=== PATIENT | male | born 1960 | race Caucasian/White ===

== ENCOUNTER 2016-10-14 01:17 | Emergency (ER) | payer MEDICAID ==
[~2016-10-14] VITALS: Ht 172.7 cm; Wt 68.0 kg
[2016-10-14 01:05] VITALS: BP 187/111
[~2016-10-14 01:17] MED LIST: LISINOPRIL10 MG ORAL
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
[2016-10-14 01:43] VITALS: BP 150/98
== END 2016-10-14 02:00 | disposition home or self-care (01) ==
LOC: EDBD 01:17 → EMR 02:00
DX: M79.1 Myalgia (principal); I10 Essential (primary) hypertension; E11.9 Type 2 diabetes mellitus without complications; F17.200 Nicotine dependence, unspecified, uncomplicated
CPT/HCPCS: 82962; 99283

== ENCOUNTER 2016-10-18 16:20 | Emergency (ER) | payer MEDICAID ==
[~2016-10-18] VITALS: Ht 172.7 cm; Wt 81.6 kg
[2016-10-18] MEDS ORDERED: Dexamethasone 4mg/ml vial IM ONE (17:00)
[2016-10-18] MEDS ORDERED: Hurricaine 20% Spray ORO ONE (17:00)
[2016-10-18] MEDS ORDERED: Methocarbamol 750mg tab ORAL ONE (17:15)
[2016-10-18 17:32] LABS: APPEARANCE,URINE CLEAR; KETONES,URINE NEGATIVE (NEGATIVE); LEUKOCYTE ESTERASE ,URINE NEGATIVE (NEGATIVE); NITRITE,URINE NEGATIVE (NEGATIVE); PH,URINE 7 (4.5-8.0); PROTEIN,URINE 2+ (NEGATIVE); UROBILINOGEN,URINE NORMAL MG/DL (0.0-1.0)
[2016-10-18 17:39] LABS: RBC,URINE 0-2 /HPF (0 - 0)
[2016-10-18 17:40] LABS: BACTERIA,URINE FEW /HPF
[2016-10-18] MEDS ORDERED: PERMETHRIN60 GM TOPIC (18:07)
[2016-10-18] MEDS ORDERED: KEFLEX250 M1 PO (18:07)
[2016-10-18 18:30] VITALS: BP 158/98
--- NOTE | 2016-10-18 18:37 | Emergency Room Report ---
History of Present Illness General Chief Complaint: Back Pain-No Injury Source: Patient Present Illness [facility] The patient is a 56-year-old male presenting with lower back pain and possible scabies exposure. The pain is described as a 6/10 dull ache to the mid lower back. Pain worse with bending over. Pain does not radiate.The patient states that the pain began after bending over 3 days prior. The patient also states that he has been scratching after possibly being exposed to scabies. The patient has not seen any lesions on the skin. The patient denies any other symptoms including nausea, vomiting, fever, chills , abdominal pain, dysuria, hematuria, penile discharge Allergies: Coded Allergies: No Known Allergies (Unverified , 10/14/16) Patient History Past Medical History: see triage record Pertinent Family History: none Reviewed Nursing Documentation: PMH: Agreed, PSxH: Agreed Nursing Documentation-PMH Past Medical History: No History, Except For Hx Hypertension: Yes Hx Diabetes: Yes Review of Systems All Other Systems: negative except mentioned in HPI Physical Exam Vital Signs Date Time Temp Pulse Resp B/P Pulse Ox O2 Delivery O2 Flow Rate FiO2 10/18/16 17:04 97.9 105 16 174/112 99 Room Air Sp02 EP Interpretation: reviewed, normal General Appearance: no apparent distress, alert, GCS 15, non-toxic Head: normocephalic, atraumatic Eyes: bilateral eye PERRL, bilateral eye normal inspection ENT: hearing grossly normal, normal pharynx, no angioedema, normal voice Neck: full range of motion, supple/symm/no masses Respiratory: chest non-tender, lungs clear, normal breath sounds, speaking full sentences Cardiovascular #1: regular rate, rhythm, no edema Gastrointestinal: normal bowel sounds, non tender, soft, non-distended, no guarding, no rebound Genitourinary: normal inspection, no CVA tenderness, penis normal, scrotum normal Musculoskeletal: back normal, gait/station normal, normal range of motion, tender - Tenderness to palpation over bilateral lumbar paraspinous muscles Neurologic: alert, oriented x3, responsive, motor strength/tone normal, sensory intact, normal gait, speech normal Psychiatric: judgement/insight normal, memory normal, mood/affect normal, no suicidal/homicidal ideation Reflexes: 3+ bicep (R), 3+ bicep (L), 3+ tricep (R), 3+ tricep (L), 3+ knee (R) , 3+ knee (L) Skin: normal color, no rash, warm/dry, well hydrated Lymphatic: no adenopathy Medical Decision Making PA Attestation Dr. Sneed is my supervising physician. Patient management was discussed with my supervising physician Diagnostic Impression: Primary Impression: Scabies exposure Additional Impression: Urinary tract infection ER Course The patient is a 56-year-old male presenting for lower back pain and possible scabies exposure Ddx considered include but not limited to sprain/strain, fracture, contusion, muscle spasm Ddx considered include but not limited to insect bite, contact dermatitis, eczema, cellulitis, scabies Physical exam: Afebrile. No apparent distress There is tenderness to palpation over bilateral lumbar paraspinous muscles. No midline tenderness. No step-offs. No obvious deformity. Normal gait. No CVA tenderness. Abdomen is soft and nontender. Skin: warm and dry. No burrowing seen. No lesions of web spaces. No erythema Labs: Urinalysis shows 2+ occult blood and 5-10 white blood cells with few bacteria The patient is given Motrin and Robaxin for pain. Patient will also receive prescription for permethrin and keflex for UTI. ER precautions are given Laboratory Tests Test 10/18/16 17:20 Urine Color Yellow Urine Appearance Clear Urine pH 7 (4.5-8.0) Urine Specific [place] 1.010 (1.005-1.035) Urine Protein 2+ (NEGATIVE) H Urine Glucose (UA) Negative (NEGATIVE) Urine Ketones Negative (NEGATIVE) Urine Occult Blood 2+ (NEGATIVE) H Urine Nitrite Negative (NEGATIVE) Urine Bilirubin Negative (NEGATIVE) Urine Urobilinogen Normal MG/DL (0.0-1.0) Urine Leukocyte Esterase Negative (NEGATIVE) Urine RBC 0-2 /HPF (0 - 0) H Urine WBC 5-10 /HPF (0 - 0) H Urine Squamous Epithelial Cells None /LPF (NONE/OCC) Urine Bacteria Few /HPF (NONE) Urine Sperm Many /LPF (NONE) Lab Results Impression Urinalysis shows 2+ occult blood and 5-10 white blood cells with few bacteria Last Vital Signs Date Time Temp Pulse Resp B/P Pulse Ox O2 Delivery O2 Flow Rate FiO2 10/18/16 18:30 98 17 158/98 100 Room Air 10/18/16 18:30 98.2 Status: improved Disposition: HOME, SELF-CARE Condition: Improved Scripts Permethrin* (ELIMITE*) 60 Gm Cream..g. 1 APPLIC TOPIC ONCE, #60 GM 0 Refills Apply cream from head to toe; leave on for 8-14 hours before washing off with water; may reapply in 1 week if live mites appear. Prov: BARBRA SEQUEIRA 10/18/16 Cephalexin (Keflex) 250 Mg Capsule 250 MG PO Q6HR, #28 CAP Prov: BARBRA SEQUEIRA.Gama 10/18/16 Patient Instructions: Urinary Tract Infection, Pruritus Additional Instructions: I discussed my findings with the patient. All questions and concerns have been answered. Treatment and medication compliance have been addressed. I advised the patient that they need to follow up with PMD in 3-5 days. Return to ED if symptoms worsen, new symptoms arise, or if needed for any reason. Patient verbalized understanding of discharge instructions. BARBRA SEQUEIRA Oct 18, 2016 18:37
== END 2016-10-18 18:32 | disposition home or self-care (01) ==
LOC: EMR 17:20
DX: N39.0 Urinary tract infection, site not specified (principal); E11.9 Type 2 diabetes mellitus without complications; I10 Essential (primary) hypertension
CPT/HCPCS: 81003; 99284

== ENCOUNTER 2017-01-10 04:07 | Emergency (ER) | payer MEDICAID ==
[~2017-01-10] VITALS: Ht 172.7 cm; Wt 72.6 kg
[~2017-01-10 04:07] MED LIST changes: +KEFLEX250 M1 PO; +PERMETHRIN60 GM TOPIC
[2017-01-10 04:40] VITALS: BP 147/90
[2017-01-10] MEDS ORDERED: IBUPROFEN600 MG ORAL (04:52)
--- NOTE | 2017-01-10 04:52 | Emergency Room Report ---
History of Present Illness General Chief Complaint: General Complaint Source: Patient Present Illness HPI This is a 57-year-old male with chief complaint of back pain. His been ongoing problem. He denies any fever chills but felt weak. Said he can't walk yet he walked himself here to the bus here. Denies any fever chills denies any nausea vomiting. No Other complaint. Allergies: Coded Allergies: No Known Allergies (Unverified , 10/14/16) Patient History Past Medical History: see triage record, old chart reviewed Past Surgical History: other Pertinent Family History: none Social History: Reports: smoking Immunizations: other Reviewed Nursing Documentation: PMH: Agreed, PSxH: Agreed Nursing Documentation-PMH Hx Hypertension: Yes Hx Diabetes: Yes Review of Systems Eye: Denies: blurred vision, eye pain ENT: Denies: ear pain, nose congestion, throat swelling Respiratory: Denies: cough, shortness of breath Cardiovascular: Denies: chest pain, palpitations Gastrointestinal: Denies: abdominal pain, diarrhea, nausea, vomiting Musculoskeletal: Denies: back pain, joint pain Skin: Denies: rash Neurological: Denies: headache, numbness Endocrine: Denies: increased thirst, increased urine Hematologic/Lymphatic: Denies: easy bruising All Other Systems: negative except mentioned in HPI Physical Exam Vital Signs Date Time Temp Pulse Resp B/P Pulse Ox O2 Delivery O2 Flow Rate FiO2 01/10/17 04:26 97.9 105 18 152/93 95 Room Air vitals with hypertension Sp02 EP Interpretation: reviewed, normal General Appearance: well appearing, no apparent distress, alert Head: normocephalic, atraumatic Eyes: bilateral eye EOMI, bilateral eye PERRL ENT: hearing grossly normal, normal pharynx Neck: full range of motion, supple, no meningismus Respiratory: chest non-tender, lungs clear, normal breath sounds Cardiovascular #1: regular rate, rhythm, no murmur Gastrointestinal: normal bowel sounds, non tender, no mass, no organomegaly, no bruit, non-distended Musculoskeletal: back normal, gait/station normal, normal range of motion Psychiatric: mood/affect normal Skin: warm/dry Medical Decision Making Diagnostic Impression: Primary Impression: Back pain Qualified Codes: M54.5 - Low back pain; G89.29 - Other chronic pain ER Course Patient with acute exacerbation of chronic back pain. Is walking around without any difficulty. When asked to sit up on the lying down position he shot up without a problem. No evidence of any trauma. I see no evidence of cauda equina syndrome, spinal epidural abscess or neoplastic process. We'll discharge home. Last Vital Signs Date Time Temp Pulse Resp B/P Pulse Ox O2 Delivery O2 Flow Rate FiO2 01/10/17 04:26 97.9 105 18 152/93 95 Room Air Status: improved Disposition: HOME, SELF-CARE Condition: Stable Scripts Ibuprofen* (MOTRIN*) 600 Mg Tablet 600 MG ORAL THREE TIMES A DAY, #30 TAB 0 Refills Prov: MARIMAR BESS M.D. 01/10/17 Additional Instructions: Followup with your Dr. in 7 days. Return if symptom worsen. MARIMAR BESS M.D. January 10, 2017 04:52
[2017-01-10 05:57] VITALS: BP 152/93
== END 2017-01-10 05:58 | disposition home or self-care (01) ==
LOC: EMR 05:02
DX: M54.9 Dorsalgia, unspecified (principal); G89.29 Other chronic pain; I10 Essential (primary) hypertension; E11.9 Type 2 diabetes mellitus without complications; F17.200 Nicotine dependence, unspecified, uncomplicated
CPT/HCPCS: 80300; 99283

== ENCOUNTER 2017-02-26 01:54 | Emergency (ER) | payer MEDICAID ==
[~2017-02-26] VITALS: Ht 172.7 cm; Wt 72.6 kg
[~2017-02-26 01:54] MED LIST changes: +IBUPROFEN600 MG ORAL
[2017-02-26 02:38] LABS: TROPONIN I < 0.30 ng/mL (<=0.30)
[2017-02-26 03:00] VITALS: BP 155/85
--- NOTE | 2017-02-26 03:12 | Emergency Room Report ---
History of Present Illness General Chief Complaint: Chest Pain Source: Patient, EMS Present Illness HPI Is a 57-year-old male who has a history of chronic pain. Also history of methamphetamine abuse. He presents with chief complaint of not feeling well and chest pain. Onset for over a day. Worse when he was walking tonight. No nausea no vomiting. No radiation. Patient is a poor historian. He [address] No radiation. Pain is 7/10. Achy nature. Allergies: Coded Allergies: No Known Allergies (Unverified , 10/14/16) Patient History Past Medical History: see triage record, old chart reviewed Past Surgical History: other Pertinent Family History: none Social History: Reports: drug use, smoking Immunizations: other Reviewed Nursing Documentation: PMH: Agreed, PSxH: Agreed Nursing Documentation-PMH Past Medical History: No History, Except For Hx Hypertension: Yes Hx Diabetes: Yes Review of Systems Constitutional: Reports: weakness Eye: Denies: blurred vision, eye pain ENT: Denies: ear pain, nose congestion, throat swelling Respiratory: Denies: cough, shortness of breath Cardiovascular: Reports: chest pain, Denies: palpitations Gastrointestinal: Denies: abdominal pain, diarrhea, nausea, vomiting Musculoskeletal: Denies: back pain, joint pain Skin: Denies: rash Neurological: Denies: headache, numbness Endocrine: Denies: increased thirst, increased urine Hematologic/Lymphatic: Denies: easy bruising All Other Systems: negative except mentioned in HPI Physical Exam Vital Signs Date Time Temp Pulse Resp B/P Pulse Ox O2 Delivery O2 Flow Rate FiO2 02/26/17 01:56 98.4 105 18 136/90 98 Room Air vitals normal Sp02 EP Interpretation: reviewed, normal General Appearance: well appearing, no apparent distress, alert Head: normocephalic, atraumatic Eyes: bilateral eye EOMI, bilateral eye PERRL ENT: hearing grossly normal, normal pharynx Neck: full range of motion, supple, no meningismus Respiratory: chest non-tender, lungs clear, normal breath sounds Cardiovascular #1: regular rate, rhythm, no murmur Gastrointestinal: normal bowel sounds, non tender, no mass, no organomegaly, no bruit, non-distended Musculoskeletal: back normal, gait/station normal, normal range of motion Psychiatric: mood/affect normal Skin: warm/dry Medical Decision Making Diagnostic Impression: Primary Impression: Chest pain Qualified Codes: R07.9 - Chest pain, unspecified Additional Impression: Methamphetamine abuse ER Course patient presents with atypical pain complaint. no evidence of ACS, PE, dissection to name a few. EKG normal. Troponin negative after one day. We'll discharge home. Lab Results Impression labs normal EKG Diagnostic Results EKG Time: 03:12 Rate: normal Rhythm: NSR ST Segments: no acute changes Rhythm Strip Diag. Results Rhythm Strip Time: 03:12 EP Interpretation: yes Rate: 85 Rhythm: NSR Last Vital Signs Date Time Temp Pulse Resp B/P Pulse Ox O2 Delivery O2 Flow Rate FiO2 02/26/17 03:00 83 16 155/85 100 Room Air 02/26/17 01:56 98.4 Status: improved Disposition: HOME, SELF-CARE Condition: Stable Referrals: NOT CHOSEN IPA/MD,REFERRING (PCP) Patient Instructions: Nonspecific Chest Pain Additional Instructions: Stop using drugs and alcohol. Followup with your Dr. in 7 days. Return if worse. MARIMAR BESS M.D. Feb 26, 2017 03:12
[2017-02-26 03:15] VITALS: BP 155/85
--- NOTE | 2017-02-28 17:46 | Cardiology Report ---
APPROVED REPORT EKG Measurement Heart [id number] ID [id number] Normal sinus rhythm Normal ECG
== END 2017-02-26 03:15 | disposition home or self-care (01) ==
LOC: EDBD 01:54 → EMR 02:06
DX: R07.9 Chest pain, unspecified (principal); F15.10 Other stimulant abuse, uncomplicated; F17.200 Nicotine dependence, unspecified, uncomplicated; E11.9 Type 2 diabetes mellitus without complications; I10 Essential (primary) hypertension
CPT/HCPCS: 84484; 93005; 99283

== ENCOUNTER 2018-03-25 00:16 | Emergency (ER) | payer MEDICAID ==
[~2018-03-25] VITALS: Ht 172.7 cm; Wt 68.0 kg
[2018-03-25 00:45] VITALS: BP 147/86
[2018-03-25] MEDS ORDERED: IBUPROFEN600 MG ORAL (01:52)
[2018-03-25 02:03] VITALS: BP 147/86
--- NOTE | 2018-03-25 04:01 | Emergency Room Report ---
History of Present Illness General Chief Complaint: Pain Source: Patient Present Illness HPI 58-year-old male presents ED complaining of knee pain. complaining of pain in the right knee for several months now. Throbbing, 7 out of 10, nonradiating. Denies any recent trauma. Notes history of chronic pain in the knee. Patient is asking for cane and some food. States he is able to walk with some difficulty. No other aggravating relieving factors. Denies any other associated symptoms Allergies: Coded Allergies: No Known Allergies (Unverified , 10/14/16) Patient History Past Medical History: DM, HTN Past Surgical History: none Pertinent Family History: none Social History: Denies: smoking, alcohol use, drug use Immunizations: UTD Reviewed Nursing Documentation: PMH: Agreed; PSxH: Agreed Nursing Documentation-PMH Hx Hypertension: Yes Hx Diabetes: Yes Review of Systems All Other Systems: negative except mentioned in HPI Physical Exam Vital Signs Date Time Temp Pulse Resp B/P (MAP) Pulse Ox O2 Delivery O2 Flow Rate FiO2 03/25/18 00:45 97.8 91 18 147/86 98 Room Air 97.8 Sp02 EP Interpretation: reviewed, normal General Appearance: no apparent distress, alert, GCS 15, non-toxic Head: normocephalic Eyes: bilateral eye normal inspection, bilateral eye PERRL ENT: normal ENT inspection Neck: normal inspection Respiratory: normal inspection Cardiovascular #1: normal inspection Gastrointestinal: normal inspection Rectal: black stool Genitourinary: no CVA tenderness Musculoskeletal: back normal, gait/station normal, normal range of motion, non- tender, swelling - R knee Neurologic: alert, oriented x3, responsive, motor strength/tone normal, sensory intact, speech normal Psychiatric: normal inspection Skin: normal inspection Lymphatic: normal inspection Medical Decision Making Diagnostic Impression: Primary Impression: Knee pain Qualified Codes: M25.561 - Pain in right knee; G89.29 - Other chronic pain ER Course Hospital Course 58-year-old male presents to ED complaining of R knee pain no trauma Differential diagnoses include: Fracture, dislocation, sprain, contusion, bursitis Clinical course Patient placed on stretcher. After initial history, physical exam reveals an middle-aged male in no acute distress. There is some noted swelling to the right knee. Full range of motion. No crepitus or bruising. Patient is declining pain medication or imaging here. Patient is requesting a cane and some food. Patient is requesting to be discharged. Patient is safe for discharge, walking with steady gait Diagnosis - knee pain stable and discharged to home with prescription for Motrin. Followup with PMD. Return to ED if symptoms recur or worsen Last Vital Signs Date Time Temp Pulse Resp B/P (MAP) Pulse Ox O2 Delivery O2 Flow Rate FiO2 03/25/18 02:03 97.8 91 18 147/86 98 Room Air 97.9 Status: improved Disposition: HOME, SELF-CARE Condition: Stable Scripts Ibuprofen* (MOTRIN*) 600 Mg Tablet 600 MG ORAL Q8H PRN for For Pain, #30 TAB 0 Refills Prov: Osvaldo Barney MD 03/25/18 Patient Instructions: Chronic Pain Osvaldo Barney MD Mar 25, 2018 04:01
== END 2018-03-25 02:04 | disposition home or self-care (01) ==
LOC: EMR 01:10
DX: M25.561 Pain in right knee (principal); I10 Essential (primary) hypertension; E11.9 Type 2 diabetes mellitus without complications
CPT/HCPCS: 99283

== ENCOUNTER 2018-04-11 01:10 | Emergency (ER) | payer MEDICAID ==
[~2018-04-11] VITALS: Ht 172.7 cm; Wt 68.0 kg
[2018-04-11 01:30] VITALS: BP 157/97
[2018-04-11] MEDS ORDERED: LISINOPRIL10 MG ORAL (01:30)
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
[2018-04-11 01:40] VITALS: BP 157/97
== END 2018-04-11 01:45 | disposition home or self-care (01) ==
LOC: EMR 01:45
DX: I10 Essential (primary) hypertension (principal); F15.10 Other stimulant abuse, uncomplicated; E11.9 Type 2 diabetes mellitus without complications
CPT/HCPCS: 99283

== ENCOUNTER 2018-07-03 23:11 | Emergency (ER) | payer MEDICAID ==
[~2018-07-03] VITALS: Ht 180.3 cm; Wt 68.0 kg
[2018-07-03 23:20] VITALS: BP 170/89
[2018-07-04 00:38] LABS: BASOPHILS % (AUTO) 0.9 % (0.0-2.0); EOSINOPHILS % (AUTO) 0.9 % (0.0-3.0); HEMATOCRIT 47.7 % (42.0-52.0); HEMOGLOBIN 16.2 G/DL (14.2-18.0); LYMPHOCYTES % (AUTO) 21.3 % (20.0-45.0); MEAN CORPUSCULAR VOLUME 86 FL (80-99); MONOCYTES % (AUTO) 4.6 % (1.0-10.0); NEUTROPHILS % (AUTO) 72.3 % (45.0-75.0); PLATELET COUNT 360 K/UL (150-450); RED BLOOD COUNT 5.51 M/UL (4.70-6.10); RED CELL DISTRIBUTION WIDTH 11.4 % (11.6-14.8); WHITE BLOOD COUNT 9.6 K/UL (4.8-10.8)
[2018-07-04 00:53] LABS: ALANINE AMINOTRANSFERASE 21 U/L (12-78); ALBUMIN 3.4 G/DL (3.4-5.0); ALBUMIN/GLOBULIN RATIO 0.8 (1.0-2.7); ALKALINE PHOSPHATASE 82 U/L (46-116); ANION GAP 8 mmol/L (5-15); ASPARTATE AMINO TRANSFERASE 16 U/L (15-37); BILIRUBIN,TOTAL 0.3 MG/DL (0.2-1.0); BLOOD UREA NITROGEN 18 mg/dL (7-18); CARBON DIOXIDE 30 MMOL/L (21-32); CHLORIDE 98 MMOL/L (98-107); POTASSIUM 3.8 MMOL/L (3.5-5.1); SODIUM 136 MMOL/L (136-145)
[2018-07-04 02:07] LABS: APPEARANCE,URINE CLEAR; BILIRUBIN, URINE NEGATIVE (NEGATIVE); COLOR,URINE PALE YELLOW; GLUCOSE, URINE (UA) 2+ (NEGATIVE); KETONES,URINE NEGATIVE (NEGATIVE); LEUKOCYTE ESTERASE ,URINE 1+ (NEGATIVE); NITRITE,URINE NEGATIVE (NEGATIVE); PH,URINE 7 (4.5-8.0); PROTEIN,URINE NEGATIVE (NEGATIVE); UROBILINOGEN,URINE NORMAL MG/DL (0.0-1.0)
--- NOTE | 2018-07-04 02:19 | Emergency Room Report ---
History of Present Illness General Chief Complaint: General Complaint Source: Patient, EMS Present Illness HPI Patient is a 58-year-old male brought in by EMS after increased generalized body aches. Patient reports having increased generalized weakness. Patient had previous visits to this emergency department where he was noted to have a positive drug screen for amphetamine. Patient reports having increased generalized weakness. He denies any vomiting. He reports having a moderate headache.Patient reports previous a taking medications for hypertension. Allergies: Coded Allergies: No Known Allergies (Unverified , 10/14/16) Patient History Past Medical History: see triage record Reviewed Nursing Documentation: PMH: Agreed; PSxH: Agreed Nursing Documentation-PMH Past Medical History: No History, Except For Hx Hypertension: Yes Hx Diabetes: Yes History Of Psychiatric Problem: Yes Review of Systems All Other Systems: negative except mentioned in HPI Physical Exam Vital Signs Date Time Temp Pulse Resp B/P (MAP) Pulse Ox O2 Delivery O2 Flow Rate FiO2 07/03/18 23:04 98.4 102 18 170/89 97 Room Air Sp02 EP Interpretation: reviewed, normal General Appearance: normal inspection, well appearing, no apparent distress, alert, GCS 15 Head: atraumatic ENT: normal ENT inspection, hearing grossly normal, normal voice Neck: normal inspection, full range of motion, supple, no bony tend Respiratory: normal inspection, lungs clear, normal breath sounds, no respiratory distress, no retraction, no wheezing Cardiovascular #1: regular rate, rhythm, no edema Gastrointestinal: normal inspection, normal bowel sounds, non tender, soft, no guarding, no hernia Genitourinary: no CVA tenderness Musculoskeletal: normal inspection, back normal, normal range of motion Neurologic: normal inspection, alert, oriented x3, responsive, insurance verifier III-XII nml as tested, speech normal Psychiatric: normal inspection, judgement/insight normal, mood/affect normal Skin: normal inspection, normal color, no rash Medical Decision Making Diagnostic Impression: Primary Impression: Hyperglycemia Additional Impression: Substance abuse ER Course Patient presented for generalized weakness. Differential diagnosis included was not limited to anemia, urinary tract infection, electrolyte abnormality, hypothyroidism, myocardial infarction, myasthenia gravis, dehydration, among others. Because of complexity of patient's case laboratory testing and imaging studies were ordered. Patient's blood tests were unremarkable other than hyperglycemia.Patient's urine positive for amphetamine. At the time of discharge patient is awake alert oriented and able to ambulate without assistance. The repeat blood sugar was noted to be normal. Patient was advise to follow-up with his primary care physician Labs Test 07/04/18 00:14 07/04/18 01:50 White Blood Count 9.6 K/UL (4.8-10.8) Red Blood Count 5.51 M/UL (4.70-6.10) Hemoglobin 16.2 G/DL (14.2-18.0) Hematocrit 47.7 % (42.0-52.0) Mean Corpuscular Volume 86 FL (80-99) Mean Corpuscular Hemoglobin 29.4 PG (27.0-31.0) Mean Corpuscular Hemoglobin Concent 34.0 G/DL (32.0-36.0) Red Cell Distribution Width 11.4 % (11.6-14.8) Platelet Count 360 K/UL (150-450) Mean Platelet Volume 6.0 FL (6.5-10.1) Neutrophils (%) (Auto) 72.3 % (45.0-75.0) Lymphocytes (%) (Auto) 21.3 % (20.0-45.0) Monocytes (%) (Auto) 4.6 % (1.0-10.0) Eosinophils (%) (Auto) 0.9 % (0.0-3.0) Basophils (%) (Auto) 0.9 % (0.0-2.0) Sodium Level 136 MMOL/L (136-145) Potassium Level 3.8 MMOL/L (3.5-5.1) Chloride Level 98 MMOL/L (98-107) Carbon Dioxide Level 30 MMOL/L (21-32) Anion Gap 8 mmol/L (5-15) Blood Urea Nitrogen 18 mg/dL (7-18) Creatinine 1.0 MG/DL (0.55-1.30) Estimat Glomerular Filtration Rate > 60 mL/min (>60) Glucose Level 223 MG/DL (74-106) Calcium Level 9.0 MG/DL (8.5-10.1) Total Bilirubin 0.3 MG/DL (0.2-1.0) Aspartate Amino Transf (AST/SGOT) 16 U/L (15-37) Alanine Aminotransferase (ALT/SGPT) 21 U/L (12-78) Alkaline Phosphatase 82 U/L (46-116) Total Protein 7.8 G/DL (6.4-8.2) Albumin 3.4 G/DL (3.4-5.0) Globulin 4.4 g/dL Albumin/Globulin Ratio 0.8 (1.0-2.7) Serum Alcohol < 3 mg/dL Last Vital Signs Date Time Temp Pulse Resp B/P (MAP) Pulse Ox O2 Delivery O2 Flow Rate FiO2 07/03/18 23:20 102 18 Room Air 07/03/18 23:20 98.4 170/89 97 Status: improved Disposition: HOME, SELF-CARE Condition: Stable Patient Instructions: Hyperglycemia Brock Estrada MD Jul 04, 2018 02:19
[2018-07-04 02:55] VITALS: BP 162/89
[2018-07-04 05:03] VITALS: BP 162/89
--- NOTE | 2018-07-04 10:15 | Diagnostic Imaging Report ---
Indications: Confusion, altered mental status Technique: Spiral acquisitions obtained through the brain. Angled axial and coronal 5 x 5 mm slices were reconstructed. Total dose length product 1372.57 mGycm. CTDI vol(s) 70.38 mGy. Dose reduction achieved using automated exposure control Comparison: None. Findings: No acute intracranial hemorrhage or edema. No mass effect nor midline shift. Normal sutton-white differentiation. Normal-sized ventricles and extra-axial CSF spaces. Intact calvarium. Visualized orbits and sinuses are unremarkable. Impression: Negative This agrees with the preliminary interpretation provided overnight by [facility] service. The CT scanner at [facility] is accredited by the [employer] and the scans are performed using protocols designed to limit radiation exposure to as low as reasonably achievable to attain images of sufficient resolution adequate for diagnostic evaluation.
== END 2018-07-04 05:04 | disposition home or self-care (01) ==
LOC: EDBD 23:11 → EMR 23:24
DX: E11.65 Type 2 diabetes mellitus with hyperglycemia (principal); F15.10 Other stimulant abuse, uncomplicated; I10 Essential (primary) hypertension; R53.1 Weakness
CPT/HCPCS: 36415; 70450; 80053; 80307; 80329; 81003; 82962; 85025; 99284

== ENCOUNTER 2018-07-25 17:53 | Emergency (ER) | payer MEDICAID ==
[~2018-07-25] VITALS: Ht 172.7 cm; Wt 72.6 kg
[2018-07-25 18:08] VITALS: BP 177/94
[2018-07-25] MEDS ORDERED: Methocarbamol 500mg tab ORAL ONE (18:30)
[2018-07-25] MEDS ORDERED: ROBAXIN500 MG PO (18:31)
--- NOTE | 2018-07-25 18:31 | Emergency Room Report ---
History of Present Illness General Chief Complaint: Pain Source: Patient Present Illness HPI 58-year-old male patient presents to ER complaining of left buttock pain. Patient reports pains are present for 3 days. Patient reports that he was seen at [facility] earlier today for similar symptoms, states that discharge him home with Tylenol and ibuprofen. Patient also reports that he has a history of a torn hamstring in that leg and he has been running continuously since that time. Denies back pain. Denies injury or trauma. Denies fever, chest pain, shortness of breath. Patient states he would like "medicine to make pain go away", declines wanting to give urine or had x-rays performed. denies diarrhea, dysuria, constipation. Denies hematuria. patient states he sleeps on the ground. Denies pain with bowel movements. Allergies: Coded Allergies: No Known Allergies (Unverified , 10/14/16) Patient History Past Medical History: see triage record Reviewed Nursing Documentation: PMH: Agreed; PSxH: Agreed Nursing Documentation-PMH Past Medical History: No History, Except For Hx Hypertension: Yes Hx Diabetes: Yes Review of Systems All Other Systems: negative except mentioned in HPI Physical Exam Vital Signs Date Time Temp Pulse Resp B/P (MAP) Pulse Ox O2 Delivery O2 Flow Rate FiO2 07/25/18 18:05 98.2 108 16 177/94 100 Room Air Sp02 EP Interpretation: reviewed, normal General Appearance: well appearing, no apparent distress, alert, GCS 15, non- toxic Head: normocephalic, atraumatic Eyes: bilateral eye normal inspection, bilateral eye PERRL ENT: hearing grossly normal, normal pharynx, no angioedema, normal voice, uvula midline, moist mucus membranes Neck: full range of motion Respiratory: lungs clear, normal breath sounds, no rhonchi, no respiratory distress, no accessory muscle use, no wheezing, speaking full sentences Cardiovascular #1: regular rate, rhythm, no edema Gastrointestinal: non tender, soft, no mass, non-distended, no guarding, no rebound Musculoskeletal: back normal, digits/nails normal, gait/station normal, normal range of motion, non-tender, no calf tenderness, pelvis stable, Leann's Sign negative, other - no leg length discrepancy Neurologic: alert, oriented x3, responsive, motor strength/tone normal, sensory intact, cerebellar normal, normal gait, speech normal Psychiatric: mood/affect normal Skin: no rash Medical Decision Making PA Attestation Dr. Coulter is my supervising Physician whom patient management has been discussed with. Diagnostic Impression: Primary Impression: Strain of left buttock ER Course Pt. presents to the ED c/o left buttock pain. Ddx considered but are not limited to fracture, sprain, strain, contusion, dislocation, UTI, constipation, abscess, cellulitis. No erythema, no warmth to touch, no fever, nontoxic appearing, low suspicion for septic joint. Soft compartments, no pulselessness, no pallor, no paresthesias, low suspicion for compartment syndrome at this time. Vital signs: are WNL, pt. is afebrile ER COURSE physical exam benign, no erythema or edema, no palpable mass, suspicion for cellulitis or abscess. Provided with muscle relaxant. Patient declined xrays or imaging, requesting further medication. Will provide patient with muscle relaxant. Pain likely related to hamstring injury and sleeping on ground. Walking independently without difficulty. Patient instructed on RICE method: rest, ice, compression, elevation. Patient instructed on rest, ice and heat. Patient instructed to be WBAT Followup with PCP and discuss referral to PT/ortho/pain management. ER precautions given. DISCHARGE: -Rx provided for Methocarbamol. SE drowsiness, do not drink, drive, or operate heavy machinery while using. At this time pt. is stable for d/c to home. Patient is resting comfortably, in no acute distress, nontoxic appearing, talking without difficulty. Will provide printed patient care instructions, and any necessary prescriptions. Patient instructed to follow with primary care provider in 3 - 5 days and to request further follow-up as needed. Care plan and follow up instructions have been discussed with the patient prior to discharge. Take medications as directed. Patient questions asked and answered. Patient reports understanding and agreement to treatment plan. ER precautions given, patient instructed to return to ER immediately for any new or worsening of symptoms. - Please note that this Emergency Department Report was dictated using [employer] specialist technology software, occasionally this can lead to erroneous entry secondary to interpretation by the dictation equipment. Last Vital Signs Date Time Temp Pulse Resp B/P (MAP) Pulse Ox O2 Delivery O2 Flow Rate FiO2 07/25/18 18:08 98.2 78 16 177/94 100 Room Air Disposition: HOME, SELF-CARE Condition: Stable Scripts Methocarbamol* (ROBAXIN*) 500 Mg Tablet 500 MG PO TID, #21 TAB 0 Refills Prov: Flako Sampson 07/25/18 Patient Instructions: Hamstring Strain With [facility] Additional Instructions: Patient instructed to follow up with primary care provider 3-5 and discuss further referral and imaging at that time. Patient instructed on rest, ice and heat. Do not take muscle relaxant prior to drinking, driving, or operating heavy machinery. Take medications as directed. Patient questions asked and answered. ER precautions given, patient instructed to return to ER immediately for any new or worsening of symptoms. [facility] [address] [facility] [address] [facility], [address] [email or web address] Flako Sampson Jul 25, 2018 18:31
[2018-07-25 18:48] VITALS: BP 177/94
== END 2018-07-25 18:48 | disposition home or self-care (01) ==
LOC: EMR 18:29
DX: S39.012A Strain of muscle, fascia and tendon of lower back, initial encounter (principal); X58.XXXA Exposure to other specified factors, initial encounter; Y92.009 Unspecified place in unspecified non-institutional (private) residence as the place of occurrence of the external cause; I10 Essential (primary) hypertension; E11.9 Type 2 diabetes mellitus without complications
CPT/HCPCS: 99282

== ENCOUNTER 2018-08-04 18:24 | Emergency (ER) | payer MEDICAID ==
[~2018-08-04] VITALS: Ht 172.7 cm; Wt 68.0 kg
[~2018-08-04 18:24] MED LIST changes: +ROBAXIN500 MG PO
[2018-08-04] MEDS ORDERED: Naproxen 500mg tab ORAL ONE (18:45)
--- NOTE | 2018-08-04 18:51 | Emergency Room Report ---
History of Present Illness General Chief Complaint: Lower Extremity Injury Source: Patient (Flako Sampson) Present Illness HPI 58-year-old male patient presents the ER complaining of right knee pain for the past 3 weeks. Patient reports that he twisted his knee 3 weeks ago. States that he was seen by [facility] 1 week ago and was told that it was broken. States that he was not given a brace or crutches. States that he has not been taking medication for pain, states he normally takes naproxen for pain. Patient was previously seen in this ER 10 days ago, patient did not have any complaints of right knee pain at that time. Patient reports that he is able to ambulate, patient observed ambulating independently without difficulty. Patient is requesting a cane. (Flako Sampson) Allergies: Coded Allergies: No Known Allergies (Unverified , 10/14/16) Patient History Past Medical History: see triage record Reviewed Nursing Documentation: PMH: Agreed; PSxH: Agreed (Flako Sampson) Nursing Documentation-PMH Past Medical History: No History, Except For Hx Hypertension: Yes Hx Diabetes: Yes (Flako Sampson) Review of Systems All Other Systems: negative except mentioned in HPI (Flako Sampson) Physical Exam Vital Signs Date Time Temp Pulse Resp B/P (MAP) Pulse Ox O2 Delivery O2 Flow Rate FiO2 08/04/18 18:26 97.2 109 17 146/84 97 Room Air Sp02 EP Interpretation: reviewed, normal General Appearance: well appearing, no apparent distress, alert, GCS 15, non- toxic Head: normocephalic, atraumatic Eyes: bilateral eye normal inspection, bilateral eye PERRL Neck: full range of motion Respiratory: lungs clear, normal breath sounds, no rhonchi, no respiratory distress, no accessory muscle use, no wheezing, speaking full sentences Cardiovascular #1: regular rate, rhythm, no edema Musculoskeletal: back normal, digits/nails normal, gait/station normal, normal range of motion, non-tender, other - NVI, no laxity with varus or valgus stress , negative anterior posterior drawer test Neurologic: alert, oriented x3, responsive, motor strength/tone normal, sensory intact Psychiatric: mood/affect normal Skin: no rash (Flako Sampson) Medical Decision Making PA Attestation Dr. Causey is my supervising Physician whom patient management has been discussed with. (Flako Sampson) Diagnostic Impression: Primary Impression: Right knee pain Qualified Codes: M25.561 - Pain in right knee Additional Impression: Right knee DJD Qualified Codes: M17.11 - Unilateral primary osteoarthritis, right knee ER Course Pt. presents to the ED c/o right knee pain. Ddx considered but are not limited to fracture, sprain, strain, contusion, dislocation. No erythema, no warmth to touch, no fever, nontoxic appearing, low suspicion for septic joint. Soft compartments, no pulselessness, no pallor, no paresthesias, low suspicion for compartment syndrome at this time. Vital signs: are WNL, pt. is afebrile Ordered X-ray and pain medication. ER COURSE Provided with pain medication. An X-ray of the right knee shows fracture, chondrocalcinosis and DJD changes noted per the preliminary reading. Discussed results with patient. Patient observed walking around the ER unassisted without difficulty, no limp, physical exam benign, low suspicion for fracture. Raf wrap was applied to the right knee and was checked afterwards by me showing good alignment and support with distal neurovascular functioning intact. Cane provided. Patient instructed on RICE method: rest, ice, compression, elevation. Patient instructed on rest, ice and heat. Patient instructed to be WBAT Contact information for orthopedic urgent care provided, follow-up with urgent care if unable to followup with primary care provider and get referral to patient support specialist. Followup with primary care provider. Discuss referral to ortho/pain management/ PT as needed. Discuss further imaging with MRI/CT as needed. Following discharge patient requesting refill of blood pressure medication, will provide patient with refill of lisinopril. Patient denies chest pain, shortness of breath, abdominal pain, headache, vision changes. Does not require acute intervention or cardiac workup at this time. She denies symptoms. Informed patient to follow-up with primary care provider, ER does not normally provide refills of medications. DISCHARGE: -Rx provided for naproxen At this time pt. is stable for d/c to home. Patient is resting comfortably, in no acute distress, nontoxic appearing, talking without difficulty. Will provide printed patient care instructions, and any necessary prescriptions. Patient instructed to follow with primary care provider in 3 - 5 days and to request further follow-up as needed. Care plan and follow up instructions have been discussed with the patient prior to discharge. Take medications as directed. Patient questions asked and answered. Patient reports understanding and agreement to treatment plan. ER precautions given, patient instructed to return to ER immediately for any new or worsening of symptoms. - Please note that this Emergency Department Report was dictated using [employer] specialist technology software, occasionally this can lead to erroneous entry secondary to interpretation by the dictation equipment. (Flako Sampson) Other X-Ray Diagnostic Results Other X-Ray Diagnostic Results : X-Ray ordered: Right knee # of Views/Limited Vs Complete: 3 View Indication: Pain EP Interpretation: Yes PA Xray: Interpretation reviewed, by supervising MD, and agrees with findings. Interpretation: no dislocation, no soft tissue swelling, no fractures Impression: No acute disease PA Scribe Text Shin Sampson PA-C (Flako Sampson) Other X-Ray Diagnostic Results : Electronically Signed by: JOCELYNN xray documentation reviewed by me and is accurate, Fadi Causey MD. (Fadi Causey MD) Last Vital Signs Date Time Temp Pulse Resp B/P (MAP) Pulse Ox O2 Delivery O2 Flow Rate FiO2 08/04/18 18:26 97.2 109 17 146/84 97 Room Air (Flako Sampson) Disposition: HOME, SELF-CARE Condition: Stable Scripts Lisinopril* (LISINOPRIL*) 10 Mg Tablet 10 MG ORAL DAILY, #30 TAB Prov: Flako Sampson.Gama 08/04/18 Naproxen* (NAPROSYN*) 250 Mg Tablet 250 MG ORAL TWICE A DAY, #30 TAB 0 Refills Prov: Flako Sampson 08/04/18 Patient Instructions: Degenerative Disk Disease, Knee Pain, [id number] Additional Instructions: Patient instructed to follow up with primary care provider and discuss further referral to orthopedics/physical therapy/pain management as needed. If unable to followup with PCP, followup with orthopedic urgent care in 5-7 days , call to schedule appointment. Patient instructed on RICE method: rest, ice, compression, elevation. Patient instructed to WBAT. Take medications as directed. Patient questions asked and answered. ER precautions given, patient instructed to return to ER immediately for any new or worsening of symptoms. [facility] [address] [facility] [address] [facility], [address] [email or web address] Flako Sampson Aug 04, 2018 18:51 Fadi Causey MD Aug 05, 2018 03:56
[2018-08-04] MEDS ORDERED: NAPROXEN250 MG ORAL (20:14)
[2018-08-04] MEDS ORDERED: LISINOPRIL10 MG ORAL (20:20)
[2018-08-04 20:35] VITALS: BP 146/84
--- NOTE | 2018-08-05 13:48 | Diagnostic Imaging Report ---
Indication: Knee pain 3 views of the right knee were obtained. Findings: There is an osteochondral defect in the medial femoral condyle. The subchondral and chondral fragment has detached from the parent bone but is not identified on this study. Chondrocalcinosis and narrowing of the joint space demonstrated. There is distention of the suprapatellar pouch suggestive of a joint effusion. There is mild prepatellar soft tissue swelling. The bones are osteopenic. IMPRESSION: Osteochondral defect with detached fragment noted. The intra-articular loose body is not identified on the current examination. Joint effusion. Osteoarthritis and chondrocalcinosis.
== END 2018-08-04 20:36 | disposition home or self-care (01) ==
LOC: EMR 18:40
DX: M17.11 Unilateral primary osteoarthritis, right knee (principal); M11.261 Other chondrocalcinosis, right knee; E11.9 Type 2 diabetes mellitus without complications; I10 Essential (primary) hypertension
CPT/HCPCS: 99283

== ENCOUNTER 2019-04-22 07:54 | Emergency (ER) | payer MEDICAID ==
[~2019-04-22] VITALS: Ht 172.7 cm; Wt 81.6 kg
[~2019-04-22 07:54] MED LIST changes: +NAPROXEN250 MG ORAL
[2019-04-22 08:12] VITALS: BP 157/97
--- NOTE | 2019-04-22 08:13 | NUR ---
ED Nurse Note:pt. was BIBA from the street with c/o abdominal pain and dizziness, pt. is A/Ox4 ambulatory, VSS, requested to have food, refused to do homeless cognitive cog
--- NOTE | 2019-04-22 08:34 | NUR ---
ED Nurse Note:pt. was provided with food, condition stable will be d/c after
[2019-04-22] MEDS ORDERED: IBUPROFEN600 MG ORAL (08:41)
[2019-04-22] MEDS ORDERED: HYDROCHLOROTHIA25 MG ORAL ×2 (08:41→09:04)
[2019-04-22] MEDS ORDERED: ZESTRIL10 M1 ORAL (09:04)
[2019-04-22 09:20] VITALS: BP 156/93
--- NOTE | 2019-04-22 09:25 | NUR ---
ER DISCHARGE NOTE: Patient is cleared to be discharged per ERMD, pt is aox4, on room air, with stable vital signs. pt was given dc and prescription instructions, pt was able to verbalize understanding, pt is able to ambulate with steady gait. pt took all belongings. pt. was provided with clothes, food, bus tockens, he was given prescriptions and verbalized understanding to take it to any pharmacy to fill in , he has insurance coverage. homeless d/c forms was signed by pt. and community resourse list was given to him
[2019-04-22 09:36] VITALS: BP 156/93
--- NOTE | 2019-04-22 14:29 | Emergency Room Report ---
History of Present Illness General Chief Complaint: Abdominal Pain Source: Medical Record, EMS Present Illness HPI 59-year-old male presents ED for evaluation. Brought in by EMS. Complaining of abdominal pain. Positive EtOH. From streets. Upon arrival patient denies abdominal pain. States he does feel hungry because he has not had food. Denies nausea or vomiting. Denies fevers or chills. No other aggravating relieving factors. Denies any other associated symptoms Allergies: Coded Allergies: No Known Allergies (Unverified , 10/14/16) Patient History Past Medical History: DM, HTN Social History: Reports: alcohol use; Denies: smoking, drug use Immunizations: UTD Reviewed Nursing Documentation: PMH: Agreed; PSxH: Agreed Nursing Documentation-PMH Past Medical History: No History, Except For Hx Cardiac Problems: No Hx Hypertension: Yes Hx Pacemaker: No Hx Asthma: No Hx COPD: No Hx Diabetes: Yes Hx Cancer: No Hx Gastrointestinal Problems: Yes - hernia Hx Dialysis: No History Of Psychiatric Problem: No Hx Cerebrovascular Accident: No Hx Seizures: No Review of Systems All Other Systems: negative except mentioned in HPI Physical Exam Vital Signs Date Time Temp Pulse Resp B/P (MAP) Pulse Ox O2 Delivery O2 Flow Rate FiO2 04/22/19 08:03 98.2 93 17 157/97 (117) 96 Room Air Sp02 EP Interpretation: reviewed, normal General Appearance: no apparent distress, alert, GCS 15, non-toxic Head: normocephalic, atraumatic Eyes: bilateral eye normal inspection, bilateral eye PERRL ENT: hearing grossly normal, normal pharynx, no angioedema, normal voice Neck: full range of motion, supple/symm/no masses Respiratory: chest non-tender, lungs clear, normal breath sounds, speaking full sentences Cardiovascular #1: regular rate, rhythm, no edema Cardiovascular #2: 2+ carotid (R), 2+ carotid (L), 2+ radial (R), 2+ radial (L) , 2+ dorsalis pedis (R), 2+ dorsalis pedis (L) Gastrointestinal: normal bowel sounds, non tender, soft, non-distended, no guarding, no rebound Rectal: deferred Genitourinary: normal inspection, no CVA tenderness Musculoskeletal: back normal, gait/station normal, normal range of motion, non- tender Neurologic: alert, oriented x3, responsive, motor strength/tone normal, sensory intact, speech normal Psychiatric: judgement/insight normal, memory normal, mood/affect normal, no suicidal/homicidal ideation Reflexes: 3+ bicep (R), 3+ bicep (L), 3+ tricep (R), 3+ tricep (L), 3+ knee (R) , 3+ knee (L) Lymphatic: no adenopathy Medical Decision Making Homeless Attestation I, The treating physician Dr. Barney, have assessed and agrees that patient is medically stable for discharge to an outpatient disposition. Diagnostic Impression: Primary Impression: Medication refill Additional Impression: Alcohol intoxication Qualified Codes: F10.929 - Alcohol use, unspecified with intoxication, unspecified ER Course Hospital Course 59-year-old male presents to ED status post EtOH intoxication. feeling hungry Clinical course Patient placed on stretcher. Initial history physical exam reveals male in no acute distress. Awake alert oriented x3. Abdomen soft with no guarding or rebound. States he feels hungry admits to alcohol use. Denies drug use. States he is also requesting refills of his BP meds. States he takes lisinopril and HCTZ Safe for discharge for close outpatient follow-up. Will provide referrals. Homeless checklist completed Diagnosis - ETOH intoxication, medication refill stable and discharged to home. Followup with PMD. Return to ED if symptoms recur or worsen Last Vital Signs Date Time Temp Pulse Resp B/P (MAP) Pulse Ox O2 Delivery O2 Flow Rate FiO2 04/22/19 09:36 98.2 79 18 156/93 100 Room Air Status: improved Disposition: HOME, SELF-CARE Condition: Improved Scripts Hydrochlorothiazide* (HYDROCHLOROTHIAZIDE*) 25 Mg Tablet 25 MG ORAL DAILY, #30 TAB Prov: Osvaldo Barney MD 04/22/19 Lisinopril* (ZESTRIL*) 10 Mg Tablet 10 MG ORAL DAILY, #30 TAB Prov: Osvaldo Barney MD 04/22/19 Referrals: NON PHYSICIAN (PCP) Dragan [facility] Patient Instructions: Hypertension, [id number] Osvaldo Barney MD Apr 22, 2019 14:29
== END 2019-04-22 09:40 | disposition home or self-care (01) ==
LOC: EDBD 07:54 → EMR 08:15
DX: F10.929 Alcohol use, unspecified with intoxication, unspecified (principal); I10 Essential (primary) hypertension; Z76.0 Encounter for issue of repeat prescription; R10.9 Unspecified abdominal pain; E11.9 Type 2 diabetes mellitus without complications; Z59.0 Homelessness
CPT/HCPCS: 99283

== ENCOUNTER 2019-07-27 12:19 | Emergency (ER) | payer MEDICAID ==
[~2019-07-27] VITALS: Ht 172.7 cm; Wt 70.3 kg
[~2019-07-27 12:19] MED LIST changes: +HYDROCHLOROTHIA25 MG ORAL; +ZESTRIL10 M1 ORAL
--- NOTE | 2019-07-27 12:30 | NUR ---
ED Nurse Note: Patient arrived to ED from home complaining of productive cough and right knee pain rating 5/10 when walking. Patient AxO x 4, no signs of acute distress.
[2019-07-27 12:35] VITALS: BP 156/98
--- NOTE | 2019-07-27 13:37 | Emergency Room Report ---
History of Present Illness General Chief Complaint: Upper Respiratory Illness Present Illness HPI 59-year-old male presents to the emergency department with 2 complaints. First complaint is persistent cough, mucus production, 8 out of 10 severity sore throat. Patient denies fevers or chills he reports he is not up-to-date with this years flu vaccination. He reports he is a smoker and he smokes daily. No other aggravating or relieving factors at this time denies chest pain, palpitations, wheezing or shortness of breath. Patient also is complaining of 6 out of 10 in severity pain in the right knee where he previously sustained a fracture and has moderate DJD/arthritis. Patient reports that his symptoms are exacerbated in the cold and he states he has been having to go into the walk-in for greater often as he works at a [employer]. Patient denies new trauma or fall, erythema, warmth, open wounds, bruising or instability of the affected knee. Patient is requesting a cane. Allergies: Coded Allergies: No Known Allergies (Unverified , 10/14/16) Patient History Past Medical History: see triage record Past Surgical History: none Pertinent Family History: none Social History: Reports: smoking Reviewed Nursing Documentation: PMH: Agreed; PSxH: Agreed Nursing Documentation-PMH Hx Cardiac Problems: No Hx Hypertension: Yes Hx Pacemaker: No Hx Asthma: No Hx COPD: No Hx Diabetes: Yes Hx Cancer: No Hx Gastrointestinal Problems: Yes - hernia Hx Dialysis: No Hx Cerebrovascular Accident: No Hx Seizures: No Review of Systems All Other Systems: negative except mentioned in HPI Physical Exam Vital Signs Date Time Temp Pulse Resp B/P (MAP) Pulse Ox O2 Delivery O2 Flow Rate FiO2 07/27/19 12:24 98.2 91 18 156/98 (117) 99 Room Air Sp02 EP Interpretation: reviewed, normal General Appearance: no apparent distress, alert, GCS 15, non-toxic Head: normocephalic, atraumatic Eyes: bilateral eye normal inspection, bilateral eye PERRL ENT: hearing grossly normal, normal voice, uvula midline, moist mucus membranes , tonsillar exudate, other - no exudates. Neck: full range of motion, no meningismus, no bony tend Respiratory: chest non-tender, lungs clear, normal breath sounds, no respiratory distress, no accessory muscle use, no wheezing, speaking full sentences Cardiovascular #1: regular rate, rhythm, no edema, normal capillary refill Musculoskeletal: normal range of motion, gait/station normal - mildly compensatory favoring the left leg., tender - Right knee tenderness to palpation anteriorly, no appreciable swelling, increased laxity, obvious deformity or inability to bear weight. Full range of motion. No erythema or warmth. Neurologic: alert, motor strength/tone normal, oriented x3, sensory intact, responsive, speech normal Psychiatric: judgement/insight normal Skin: normal color, normal inspection Medical Decision Making PA Attestation Dr. Causey Is my supervising Physician whom patient management has been discussed with. Diagnostic Impression: Primary Impression: Knee pain Qualified Codes: M25.561 - Pain in right knee Additional Impression: Acute bronchitis Qualified Codes: J20.9 - Acute bronchitis, unspecified ER Course 59-year-old male presents to the emergency department with 2 complaints. First complaint is persistent cough, mucus production, 8 out of 10 severity sore throat. Patient denies fevers or chills he reports he is not up-to-date with this years flu vaccination. He reports he is a smoker and he smokes daily. No other aggravating or relieving factors at this time denies chest pain, palpitations, wheezing or shortness of breath. Patient also is complaining of 6 out of 10 in severity pain in the right knee where he previously sustained a fracture and has moderate DJD/arthritis. Patient reports that his symptoms are exacerbated in the cold and he states he has been having to go into the walk-in for greater often as he works at a [employer]. Patient denies new trauma or fall, erythema, warmth, open wounds, bruising or instability of the affected knee. Patient is requesting a cane. Ddx considered but are not limited to URI, pneumonia, PE, strep pharyngitis, meningitis, bronchitis, sprain, arthritis exacerbation, ligamental injury, meniscal injury, septic joint, gout/pseudogout. Vital signs: Pt. is afebrile, the remaining VS are WNL H&PE are most consistent with URI- no meningeal signs, oropharynx is erythematous but does not meet Centor criteria. No evidence of bacterial infection at this time. ORDERS: none required at this time, the diagnosis is clinical ED INTERVENTIONS: --Raf wrap applied to the right knee by human service technician. Pt. remains neurovascularly intact. -Patient is provided with a cane. DISCHARGE: At this time pt. is stable for d/c to home. Will provide printed patient care instructions, and any necessary prescriptions. Care plan and follow up instructions have been discussed with the patient prior to discharge. Last Vital Signs Date Time Temp Pulse Resp B/P (MAP) Pulse Ox O2 Delivery O2 Flow Rate FiO2 07/27/19 12:24 98.2 91 18 156/98 (117) 99 Room Air Status: improved Disposition: HOME, SELF-CARE Condition: Stable Referrals: [facility]. [facility] Patient Instructions: Knee Pain, [id number], Upper Respiratory Infection, Adult Additional Instructions: Take medications as directed. Follow up with a Primary Care Provider in 3-5 days, even if your symptoms have resolved. --Please review list of primary care clinics, if you do not already have a primary care provider Return sooner to ED if new symptoms occur, or current symptoms become worse. - Please note that this Emergency Department Report was dictated using [email or web address] engineering technician technology software, occasionally this can lead to erroneous entry secondary to interpretation by the dictation equipment. Rachel Hernandez Jul 27, 2019 13:37
[2019-07-27] MEDS ORDERED: ALBUTEROL SULF8.5 GM INH (13:38)
[2019-07-27] MEDS ORDERED: IBUPROFEN600 MG ORAL (13:38)
[2019-07-27] MEDS ORDERED: ROBITUSSIN COU237 M2 PO (13:38)
--- NOTE | 2019-07-27 13:40 | NUR ---
Patient's right knee secured and stabilized with Raf Wrap. Cane given to patient, patient demonstrated proper use of cane with steady gait.
[2019-07-27 14:00] VITALS: BP 154/92
--- NOTE | 2019-07-27 14:00 | NUR ---
ED Nurse Note: Patient cleared for discharge by ER MD, patient given prescriptions and verbalized understanding regarding discharge instructions.
== END 2019-07-27 14:00 | disposition home or self-care (01) ==
LOC: EMR 13:18
DX: J20.9 Acute bronchitis, unspecified (principal); M25.561 Pain in right knee; F17.200 Nicotine dependence, unspecified, uncomplicated; I10 Essential (primary) hypertension; E11.9 Type 2 diabetes mellitus without complications
CPT/HCPCS: 99282